=== PATIENT | male | born 1950 | race Caucasian/White ===

== ENCOUNTER 2017-10-25 12:18 | Emergency (ER) | payer OTHER ==
[~2017-10-25] VITALS: Ht 190.5 cm; Wt 117.9 kg
[2017-10-25] MEDS ORDERED: LIPITOR10 MG PO (12:47)
[2017-10-25] MEDS ORDERED: GLIPIZIDE 10 MG10 MG PO (12:47)
[2017-10-25] MEDS ORDERED: LISINOPRIL10 MG PO (12:47)
[2017-10-25] MEDS ORDERED: NAPROSYN500 MG PO (13:32)
[2017-10-25 13:48] VITALS: BP 135/74
== END 2017-10-25 13:50 | disposition home or self-care (01) ==
LOC: ER 12:18
DX: S46.811A Strain of other muscles, fascia and tendons at shoulder and upper arm level, right arm, initial encounter (principal); W22.8XXA Striking against or struck by other objects, initial encounter; Y93.89 Activity, other specified; Y92.89 Other specified places as the place of occurrence of the external cause; Y99.8 Other external cause status